=== PATIENT | female | born 1995 | race Caucasian/White ===

== ENCOUNTER 2017-04-23 17:49 | Emergency (ER) | payer OTHER ==
[~2017-04-23] VITALS: Ht 154.9 cm; Wt 78.2 kg
[~2017-04-23 17:49] MED LIST: FOLI1TAB19 PO; IRON65TA11 PO; PREN-385 PO
[2017-04-23 18:04] VITALS: BP 120/88
[2017-04-23 18:29] LABS: BASOPHILS # (AUTO) 0.4 K/uL (0.00-0.22); EOSINOPHILS # (AUTO) 0.2 K/uL (0-0.4); HEMATOCRIT 38.4 % (36-48); HEMOGLOBIN 12.9 g/dL (12.0-16.0); LYMPHOCYTES # (AUTO) 2.3 K/uL (2.5-16.5); MEAN CORPUSCULAR HEMOGLOBIN 30 pg (27-31); MEAN CORPUSCULAR HGB CONC 34 g/dL (33-37); MEAN CORPUSCULAR VOLUME 88 fL (80-94); MONOCYTES # (AUTO) 0.6 K/uL (0.8-1.0); NEUTROPHILS # (AUTO) 4.5 K/uL (1.8-7.7); PLATELET COUNT (AUTO) 287 K/uL (140-450); RED BLOOD CELL COUNT(AUTO) 4.36 MIL/uL (4.20-5.40); RED CELL DISTRIBUTION WIDTH 12.9 % (11.6-13.7)
[2017-04-23 18:31] LABS: APPEARANCE,URINE CLEAR (CLEAR); BILIRUBIN,URINE NEGATIVE (NEGATIVE); BLOOD, URINE TRACE-I (NEGATIVE); COLOR,URINE YELLOW (YELLOW); LEUKOCYTE ESTERASE ,URINE TRACE (NEGATIVE); NITRITE, URINE NEGATIVE (NEGATIVE); PROTEIN,URINE NEGATIVE (NEGATIVE); UGLUCOSE NEGATIVE (NEGATIVE); UROBILINOGEN,URINE 0.2 EU/dL (0.2 - 1)
[2017-04-23 18:41] LABS: RBC,URINE 0-5 /HPF (0-5)
[2017-04-23 18:42] LABS: BACTERIA,URINE 2+ /HPF (None Seen); MUCUS,URINE 2+ /LPF (None Seen)
[2017-04-23 18:44] LABS: CALCIUM 8.6 mg/dL (8.5-10.1); CARBON DIOXIDE 26.7 mmol/L (21-32); CREATININE 0.7 mg/dL (0.6-1.3); POTASSIUM 3.7 mmol/L (3.5-5.1)
[2017-04-23 18:48] LABS: PARTIAL THROMBOPLASTIN TIME 26.1 secs (22-35.6); PROTHROMBIN TIME 10.5 secs (10.8-13.4)
[2017-04-23 18:50] LABS: ALBUMIN 3.9 g/dL (3.4-5.0); TOTAL BILIRUBIN 1.4 mg/dL (0.0-1.0); TOTAL PROTEIN, SERUM 7.7 g/dL (6.4-8.2)
--- NOTE | 2017-04-23 20:49 | NUR ---
Patient ambulated to OF3 at this time.
[2017-04-23 21:40] VITALS: BP 118/74
== END 2017-04-23 21:40 | disposition home or self-care (01) ==
LOC: MED 17:49
DX: K22.6 Gastro-esophageal laceration-hemorrhage syndrome (principal); R03.0 Elevated blood-pressure reading, without diagnosis of hypertension
CPT/HCPCS: 36415; 71020; 80053; 81001; 81025; 83690; 85025; 85610; 85730; 87086; 99285

== ENCOUNTER 2018-01-14 07:35 | Emergency (ER) | payer MEDICAID ==
[~2018-01-14] VITALS: Ht 157.5 cm; Wt 79.4 kg
[~2018-01-14 07:35] MED LIST changes: +FERR-252 PO; -IRON65TA11 PO
[2018-01-14 07:46] VITALS: BP 112/70
[2018-01-14 10:02] LABS: BILIRUBIN,URINE NEGATIVE (NEGATIVE); BLOOD, URINE NEGATIVE (NEGATIVE); COLOR,URINE YELLOW (YELLOW); LEUKOCYTE ESTERASE ,URINE 1+ (NEGATIVE); PH,URINE 5.5 (5.0-9.0); UGLUCOSE NEGATIVE (NEGATIVE)
[2018-01-14 10:16] LABS: APPEARANCE,URINE HAZY (CLEAR); NITRITE, URINE POSITIVE (NEGATIVE)
[2018-01-14 10:17] LABS: RBC,URINE 0-5 (RARE) /HPF (0-5)
[2018-01-14 10:30] VITALS: BP 102/61
== END 2018-01-14 10:30 | disposition home or self-care (01) ==
LOC: MED 07:35
DX: O23.41 Unspecified infection of urinary tract in pregnancy, first trimester (principal); Z3A.10 10 weeks gestation of pregnancy
CPT/HCPCS: 36415; 76801; 81001; 81025; 84702; 87086; 87186; 99285; Q0092

== ENCOUNTER 2018-04-11 06:57 | Emergency (ER) | payer MEDICAID, OTHER ==
[~2018-04-11] VITALS: Ht 157.5 cm; Wt 77.2 kg
[2018-04-11 07:02] VITALS: BP 120/64
--- NOTE | 2018-04-11 07:07 | NUR ---
PT AMBULATEY TO BED 7
--- NOTE | 2018-04-11 07:08 | NUR ---
REPORT GIVEN TO JOLENE VELIZ
--- NOTE | 2018-04-11 07:10 | NUR ---
PT. CAME INTO THE ED DUE TO LOWER ABD CRAMPING SINCE LAST NIGHT. PT. STATES " SINCE 8PM LAST NIGHT I STARTED HAVING A LOT OF CRAMPING IN MY LOWER ABDOMEN SO I CAME IN BECAUSE IM WORRIED". 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 PT. IS CURRENTLY TAKING VITAMINS INDICATED. PT. IS [id number]. PT. DENIES ANY VAGINAL BLEEDING AT THIS TIME. PT STATES " I ONLY HAVE MORNING SICKNESS". 10 PAIN IN LOWER ABD THAT RADIATEST TO BACK AND DESCRIBED CRAMPING. ER MD NOTIFIED. WILL CONTINUE TO MONITOR.
[2018-04-11 08:09] LABS: APPEARANCE,URINE CLEAR (CLEAR); BILIRUBIN,URINE NEGATIVE (NEGATIVE); BLOOD, URINE NEGATIVE (NEGATIVE); COLOR,URINE YELLOW (YELLOW); LEUKOCYTE ESTERASE ,URINE 1+ (NEGATIVE); NITRITE, URINE NEGATIVE (NEGATIVE); UGLUCOSE NEGATIVE (NEGATIVE)
[2018-04-11 08:13] LABS: RBC,URINE 0-5 (RARE) /HPF (0-5)
[2018-04-11 08:14] LABS: WBC,URINE 0-5 (RARE) /HPF (0-5)
[2018-04-11 08:37] VITALS: BP 120/64
== END 2018-04-11 08:38 | disposition home or self-care (01) ==
LOC: MED 06:57
DX: O23.42 Unspecified infection of urinary tract in pregnancy, second trimester (principal); Z79.899 Other long term (current) drug therapy; Z3A.20 20 weeks gestation of pregnancy
CPT/HCPCS: 81001; 87086; 99284

== ENCOUNTER 2018-07-25 23:00 | Inpatient (IN) | payer OTHER ==
[~2018-07-25] VITALS: Ht 157.5 cm; Wt 80.3 kg
[2018-07-25 23:15] VITALS: BP 106/67
[2018-07-25] MEDS ORDERED: LACTATED RINGERS 1,000 ML IV SCH (23:45)
[2018-07-25] MEDS ORDERED: NALBUPHINE 10 MG/ML AMP IVP PRN (23:45)
[2018-07-25] MEDS ORDERED: TERBUTALINE 1 MG/ML VIAL SUBQ SCH (23:45)
[2018-07-25] MEDS ORDERED: TERBUTALINE 1 MG/ML VIAL SUBQ ONE (23:54)
== END 2018-07-26 12:45 | disposition home or self-care (01) | DRG 565 ==
LOC: MLD 23:00
PROVIDERS: ADMIT Obstetrics & Gynecology; ATTEND Obstetrics & Gynecology
DX: O47.9 False labor, unspecified (principal); Z3A.00 Weeks of gestation of pregnancy not specified
CPT/HCPCS: J3105; J7120

== ENCOUNTER 2018-08-02 18:50 | Inpatient (IN) | payer OTHER ==
[~2018-08-02] VITALS: Ht 157.5 cm; Wt 80.3 kg
[2018-08-02 19:03] VITALS: BP 113/69
[2018-08-02] MEDS ORDERED: LACTATED RINGERS 1,000 ML IV SCH (19:45)
[2018-08-02 20:15] LABS: BASOPHILS % (AUTO) 0.4 % (0.0-2.0); EOSINOPHILS # (AUTO) 0.1 K/uL (0-0.4); EOSINOPHILS % (AUTO) 1.1 % (0.0-4.0); HEMATOCRIT 31.9 % (36-48); HEMOGLOBIN 10.9 g/dL (12.0-16.0); LYMPHOCYTES # (AUTO) 2.3 K/uL (2.5-16.5); LYMPHOCYTES % (AUTO) 30.7 % (20.5-51.1); MEAN CORPUSCULAR HEMOGLOBIN 31 pg (27-31); MEAN CORPUSCULAR HGB CONC 34 g/dL (33-37); MONOCYTES # (AUTO) 0.7 K/uL (0.8-1.0); MONOCYTES % (AUTO) 9.6 % (1.7-9.3); NEUTROPHILS # (AUTO) 4.4 K/uL (1.8-7.7); NEUTROPHILS % (AUTO) 58.2 % (42.2-75.2); PLATELET COUNT (AUTO) 178 K/uL (140-450); RED BLOOD CELL COUNT(AUTO) 3.51 MIL/uL (4.20-5.40); RED CELL DISTRIBUTION WIDTH 13.1 % (11.6-13.7); WHITE BLOOD COUNT (AUTO) 7.5 K/uL (4.8-10.8)
== END 2018-08-02 22:30 | disposition home or self-care (01) | DRG 565 ==
LOC: MLD 18:50
PROVIDERS: ADMIT Obstetrics & Gynecology; ATTEND Obstetrics & Gynecology
DX: O47.9 False labor, unspecified (principal); Z3A.00 Weeks of gestation of pregnancy not specified
CPT/HCPCS: 36415; 76815; 85025; 86592; 86886; 86900; 86901; C1758; J7120; Q0092

== ENCOUNTER 2018-08-07 17:04 | Inpatient (IN) | payer OTHER ==
[~2018-08-07] VITALS: Ht 157.5 cm; Wt 80.3 kg
[~2018-08-07 17:04] MED LIST changes: -FERR-252 PO; -FOLI1TAB19 PO
[2018-08-07] MEDS ORDERED: NALBUPHINE 10 MG/ML AMP IVP PRN (17:40)
[2018-08-07] MEDS ORDERED: CARBOPROST 250 MCG/ML AMP IM PRN (17:40)
[2018-08-07] MEDS ORDERED: OXYTOCIN 10 UNITS/ML VIAL IM SCH (17:40)
[2018-08-07] MEDS ORDERED: METHYLERGONOVINE 0.2 MG/ML AMP IM PRN (17:40)
[2018-08-07 18:48] LABS: BASOPHILS % (AUTO) 0.4 % (0.0-2.0); EOSINOPHILS % (AUTO) 0.6 % (0.0-4.0); HEMATOCRIT 35.6 % (36-48); HEMOGLOBIN 11.9 g/dL (12.0-16.0); LYMPHOCYTES # (AUTO) 1.9 K/uL (2.5-16.5); LYMPHOCYTES % (AUTO) 30.2 % (20.5-51.1); MEAN CORPUSCULAR HEMOGLOBIN 31 pg (27-31); MEAN CORPUSCULAR HGB CONC 34 g/dL (33-37); MEAN CORPUSCULAR VOLUME 91.5 fL (80-94); MONOCYTES # (AUTO) 0.5 K/uL (0.8-1.0); MONOCYTES % (AUTO) 7.8 % (1.7-9.3); NEUTROPHILS # (AUTO) 3.9 K/uL (1.8-7.7); PLATELET COUNT (AUTO) 180 K/uL (140-450); RED BLOOD CELL COUNT(AUTO) 3.89 MIL/uL (4.20-5.40); RED CELL DISTRIBUTION WIDTH 13.1 % (11.6-13.7); WHITE BLOOD COUNT (AUTO) 6.4 K/uL (4.8-10.8)
[2018-08-07 18:59] LABS: APPEARANCE,URINE SLIGHTLY HAZY (CLEAR); COLOR,URINE YELLOW (YELLOW)
[2018-08-07 19:00] LABS: BILIRUBIN,URINE NEGATIVE (NEGATIVE); BLOOD, URINE NEGATIVE (NEGATIVE); NITRITE, URINE NEGATIVE (NEGATIVE); UGLUCOSE NEGATIVE (NEGATIVE)
[2018-08-07 19:01] LABS: LEUKOCYTE ESTERASE ,URINE 2+ (NEGATIVE)
[2018-08-07 19:02] LABS: RBC,URINE NONE SEEN /HPF (0-5); WBC,URINE 6-15 (FEW) /HPF (0-5)
[2018-08-07] MEDS: LACTATED RINGERS 1,000 ML IV SCH (19:19)
[2018-08-08] MEDS: LACTATED RINGERS 1,000 ML IV SCH ×2 (03:44→11:11)
[2018-08-08] MEDS ORDERED: OXYTOCIN 20 UNITS/LR PREMIX 1,000 ML IV ONE (06:14)
--- NOTE | 2018-08-08 09:34 | NUR ---
PATIENT HAS BEEN SCREENED AND CATEGORIZED LOW NUTRITION RISK. PATIENT WILL BE SEEN WITHIN 7 DAYS OF ADMISSION. 08/14/[address]
[2018-08-08] MEDS ORDERED: OXYTOCIN 10 UNITS/ML VIAL ONE (11:38)
[2018-08-08] MEDS ORDERED: LIDOCAINE 1% 50 ML ONE (18:34)
[2018-08-08] MEDS ORDERED: MEASLES, MUMPS, AND RUBELLA 1 VIAL SQVAC PRN (19:50)
[2018-08-08] MEDS ORDERED: ACETAMINOPHEN 325 MG TAB PO PRN (19:50)
[2018-08-08] MEDS ORDERED: BISACODYL 5 MG TABEC PO PRN (19:50)
[2018-08-08] MEDS ORDERED: OXYTOCIN 20 UNITS in LACTATED RINGERS 1,000 ML IV SCH (19:50)
[2018-08-09] MEDS: IBUPROFEN 600 MG TAB PO PRN (01:54)
[2018-08-09] MEDS ORDERED: INFLUENZA VIRUS VACCINE QUAD 0.5 ML SYR IMVAC PRN (04:43)
[2018-08-09 09:20] LABS: BASOPHILS # (AUTO) 0.1 K/uL (0.00-0.22); BASOPHILS % (AUTO) 0.7 % (0.0-2.0); EOSINOPHILS # (AUTO) 0.1 K/uL (0-0.4); EOSINOPHILS % (AUTO) 0.7 % (0.0-4.0); HEMOGLOBIN 12.1 g/dL (12.0-16.0); LYMPHOCYTES # (AUTO) 2.8 K/uL (2.5-16.5); LYMPHOCYTES % (AUTO) 26.6 % (20.5-51.1); MEAN CORPUSCULAR HEMOGLOBIN 31 pg (27-31); MEAN CORPUSCULAR HGB CONC 34 g/dL (33-37); MEAN CORPUSCULAR VOLUME 91.7 fL (80-94); MONOCYTES # (AUTO) 0.5 K/uL (0.8-1.0); MONOCYTES % (AUTO) 5.2 % (1.7-9.3); NEUTROPHILS % (AUTO) 66.8 % (42.2-75.2); PLATELET COUNT (AUTO) 176 K/uL (140-450); RED BLOOD CELL COUNT(AUTO) 3.93 MIL/uL (4.20-5.40); RED CELL DISTRIBUTION WIDTH 13.3 % (11.6-13.7); WHITE BLOOD COUNT (AUTO) 10.5 K/uL (4.8-10.8)
[2018-08-10] MEDS: IBUPROFEN 600 MG TAB PO PRN (08:08)
== END 2018-08-10 15:00 | disposition home or self-care (01) | DRG 560 ==
LOC: MLD 17:04 → MFCC 08-08 21:20
PROVIDERS: ADMIT Obstetrics & Gynecology; ATTEND Obstetrics & Gynecology
PROC: 10E0XZZ Delivery of Products of Conception, External Approach (ICD-10-PCS; principal; 2018-08-08)
PROC: 10907ZC Drainage of Amniotic Fluid, Therapeutic from Products of Conception, Via Natural or Artificial Opening (ICD-10-PCS; 2018-08-08)
PROC: 3E033VJ Introduction of Other Hormone into Peripheral Vein, Percutaneous Approach (ICD-10-PCS; 2018-08-08)
PROC: 3E033VJ Introduction of Other Hormone into Peripheral Vein, Percutaneous Approach (ICD-10-PCS; 2018-08-08)
PROC: 3E02340 Introduction of Influenza Vaccine into Muscle, Percutaneous Approach (ICD-10-PCS; 2018-08-08)
PROC: 3E0234Z Introduction of Serum, Toxoid and Vaccine into Muscle, Percutaneous Approach (ICD-10-PCS; 2018-08-08)
DX: O48.0 Post-term pregnancy (principal); Z23 Encounter for immunization; Z37.0 Single live birth; Z3A.40 40 weeks gestation of pregnancy
CPT/HCPCS: 36415; 51702; 59409; 76815; 81001; 85025; 86592; 86886; 86900; 86901; 87086; 90658; 90715; J2001; J2590; J7120; Q0092

== ENCOUNTER 2018-09-08 02:20 | Emergency (ER) | payer OTHER ==
[~2018-09-08] VITALS: Ht 157.5 cm; Wt 74.8 kg
[2018-09-08 02:36] VITALS: BP 136/90
--- NOTE | 2018-09-08 02:36 | NUR ---
TO BED # 12 AMB, REPORT GIVEN TO BRIAN VELIZ
--- NOTE | 2018-09-08 02:40 | NUR ---
PATIENT PRESENTS TO ED WITH C/O TOOTHACHE PT SKIN IS PINK/WARM/DRY; AAOX4 WITH EVEN AND STEADY GAIT; LUNGS CLEAR BL; HR EVEN AND REGULAR; PATIENT STATES PAIN OF 10/10 AT THIS TIME; VSS; PATIENT POSITIONED FOR COMFORT; HOB ELEVATED; BEDRAILS UP X2; BED DOWN. ER MD MADE AWARE OF PT STATUS.
--- NOTE | 2018-09-08 02:52 | NUR ---
Dr. Ash evaluating patient at bedside.
[2018-09-08] MEDS ORDERED: HYDROcodone/APAP 5/325 MG 1 TAB TAB PO ONE (02:55)
[2018-09-08 03:15] VITALS: BP 136/90
== END 2018-09-08 03:15 | disposition home or self-care (01) ==
LOC: MED 02:20
DX: K02.9 Dental caries, unspecified (principal); K03.81 Cracked tooth; Z79.899 Other long term (current) drug therapy
CPT/HCPCS: 99282

== ENCOUNTER 2019-06-05 17:58 | Emergency (ER) | payer OTHER ==
[~2019-06-05] VITALS: Ht 157.5 cm; Wt 87.1 kg
[2019-06-05 18:08] VITALS: BP 116/57
--- NOTE | 2019-06-05 18:29 | NUR ---
24F C/O 05/08 CONSTANT, POKING HEAD PAIN LOCALIZED TO WHERE SHE HAD SKULL FX IN 2017 X 3 DAYS, ASSOCIATED WITH DIZZINESS AND DOUBLE VISION THAT OCCUR WHEN SHE CHANGES POSITIONS QUICKLY. STATES IT IS NOT THE USUAL HEADACHE PAIN WHICH IS FRONTAL PAIN. STATES NAUSEA SOMETIMES WITH HEAD PAIN. ALSO STATES RT EAR PEEPING SOUND AND PAIN OCCURING WITH HEAD PAIN. PERRLA. 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 SKULL FX IN 2017 WITH COMA FOR 2-3 DAYS, STATES NO SURGERY WAS DONE AT THAT TIME. HX SKULL FX RX ADVIL PRN
--- NOTE | 2019-06-05 19:17 | NUR ---
Transfer of care at this time to KEREN Simms. Pt in stable condition.
--- NOTE | 2019-06-05 19:22 | NUR ---
PT SITTING ON CHAIR. C/O OF HEADACHE 04/07. NO NAUSEA/VOMITTING. PT VSS. ERMD AWARE. WILL CONTINUE TO MONITOR.
--- NOTE | 2019-06-05 19:39 | NUR ---
Dr. Mata examining patient.
[2019-06-05] MEDS ORDERED: PROMETHAZINE 25 MG/ML VIAL IM ONE (20:00)
[2019-06-05] MEDS ORDERED: diphenhydrAMINE 50 MG/ML VIAL IM ONE (20:00)
[2019-06-05] MEDS ORDERED: KETOROLAC 30 MG/ML VIAL IM ONE (20:00)
[2019-06-05 20:28] VITALS: BP 115/75
--- NOTE | 2019-06-05 20:28 | NUR ---
PT DISCHARGED WITH PAPERWORK. NO RX PROVIDED. EDUCATED PT REGARDING D/C DIAGNOSIS. PT VERBALIZED UNDERSTANDING OF TEACHING. TOLD PT TO FOLLOW UP WITH PCP AND WHEN TO RETURN TO ED WHEN PAIN PERSISTS OR WORSENS. PT VSS. ALL QUESTIONS ANSWERED.
== END 2019-06-05 20:28 | disposition home or self-care (01) ==
LOC: MED 17:58
DX: G44.209 Tension-type headache, unspecified, not intractable (principal); Z79.899 Other long term (current) drug therapy
CPT/HCPCS: 81025; 96372; 99283; J1200; J1885; J2550

== ENCOUNTER 2019-07-22 13:19 | Emergency (ER) | payer OTHER ==
[~2019-07-22] VITALS: Ht 157.5 cm; Wt 88.0 kg
[2019-07-22 13:25] VITALS: BP_SYST 121
--- NOTE | 2019-07-22 13:33 | NUR ---
PT TAKEN TO BED 9.
--- NOTE | 2019-07-22 13:46 | NUR ---
PT PRESENTS TO ED WITH C/O RT FLANK PAIN WITH URINE URGENCY SINCE YESTERDAY. STATES HAVING NAUSEA, CHILSS, DENIES FEVER. PT AAO X4, GCS 15, AMBULATORY WITH STEADY GAIT. RESPIATIONS EVEN AND ULABORED, BL LUNG CLEAR. SKIN WARM/PINK/DRY, +PMSC. ABDOMEN SOFT, NON DISTENDED, ACTIVE BOWEL SOUND X4. VS WNL. STATED LT FLANK STABBING PAIN 8/. AT BEDSIDE EVALUATING PT. WILL CONTINUE TO MONITOR
[2019-07-22] MEDS ORDERED: ONDANSETRON 4 MG ODT PO ONE (13:50)
[2019-07-22] MEDS ORDERED: KETOROLAC 60 MG/2 ML VIAL IM ONE (13:50)
--- NOTE | 2019-07-22 14:20 | NUR ---
Patient discharged with v/s stable. Written and verbal after care instructions given and explained. Patient alert, oriented and verbalized understanding of instructions. Ambulatory with steady gait. All questions addressed prior to discharge. ID band removed. Patient advised to follow up with PMD. Rx of KEFLEX 500 MG, ZOFRAN 4 MG ODT, NORCO 5/325 MG, given. Patient educated on indication of medication including possible reaction and side effects. Opportunity to ask questions provided and answered.
[2019-07-22 14:21] VITALS: BP 125/69
== END 2019-07-22 14:20 | disposition home or self-care (01) ==
LOC: MED 13:19
DX: N10 Acute pyelonephritis (principal); Z79.899 Other long term (current) drug therapy
CPT/HCPCS: 81002; 81025; 96372; 99283; J1885; Q0162

== ENCOUNTER 2022-07-17 07:29 | Emergency (ER) | payer OTHER ==
[~2022-07-17] VITALS: Ht 154.9 cm; Wt 74.8 kg
[2022-07-17 07:32] VITALS: BP 127/87
--- NOTE | 2022-07-17 07:50 | NUR ---
27/F WALKED IN C.O HEADACHE ONSET 1 DAY ACCOMPANIED BY NAUSEA. DENIES FALL OR TRAUMA. AAO4, AMBULATORY, URINE COLLECTED. PMH: DENIES
[2022-07-17] MEDS ORDERED: ACETAMINOPHEN 325 MG TAB PO ONE (07:55)
[2022-07-17] MEDS ORDERED: PROCHLORPERAZINE 10 MG/2 ML VIAL IM ONE (07:55)
--- NOTE | 2022-07-17 08:14 | NUR ---
PT WENT FOR CT
[2022-07-17 08:18] VITALS: BP 124/77
[2022-07-17] MEDS ORDERED: PROC-62 PO (09:00)
--- NOTE | 2022-07-17 09:05 | NUR ---
Patient discharged with v/s stable. Written and verbal after care instructions given and explained. Patient alert, oriented and verbalized understanding of instructions. Ambulatory with steady gait. All questions addressed prior to discharge. ID band removed. Patient advised to follow up with PMD. Rx of COMPAZINE given. Patient educated on indication of medication including possible reaction and side effects. Opportunity to ask questions provided and answered. STATES NO LONGER NAUSEOUS
== END 2022-07-17 09:05 | disposition home or self-care (01) ==
LOC: MED 07:29
DX: R51.9 Headache, unspecified (principal); H53.149 Visual discomfort, unspecified; R11.0 Nausea; Z79.899 Other long term (current) drug therapy; Z98.890 Other specified postprocedural states
CPT/HCPCS: 70450; 81002; 81025; 96372; 99284; J0780

== ENCOUNTER 2022-08-26 06:39 | Emergency (ER) | payer OTHER ==
[~2022-08-26] VITALS: Ht 157.5 cm; Wt 82.6 kg
[~2022-08-26 06:39] MED LIST changes: +PROC-87 PO
[2022-08-26 06:44] VITALS: BP 115/69
--- NOTE | 2022-08-26 06:49 | NUR ---
Patient taken to bed 11.
--- NOTE | 2022-08-26 06:49 | NUR ---
PT TO 11
--- NOTE | 2022-08-26 07:25 | NUR ---
27F presents to ED with c/o bilateral breast pain and right lower back pain x2 weeks. Pt reports a constant, sharp like, 9/10 pain to right lower back. Pt denies trauma or injury, UTI symptoms, and ABD pain. Pt reports intermittent, sharp like, 6/10 pain to left and right breasts, took ibuprofen for pain with mild relief. Pt denies SOB, fevers, chills, or meds today. Pt changed into gown, bed at lowest position, side rails x1.
[2022-08-26] MEDS ORDERED: KETOROLAC 30 MG/ML VIAL IM ONE (07:30)
[2022-08-26 07:35] LABS: APPEARANCE,URINE CLOUDY (CLEAR); BILIRUBIN,URINE NEGATIVE (NEGATIVE); BLOOD, URINE TRACE-I (NEGATIVE); COLOR,URINE YELLOW (YELLOW); LEUKOCYTE ESTERASE ,URINE TRACE (NEGATIVE); NITRITE, URINE POSITIVE (NEGATIVE); UGLUCOSE NEGATIVE (NEGATIVE)
--- NOTE | 2022-08-26 07:41 | NUR ---
Female Slot Floor Person accompanied female patient for Breast Exam.
[2022-08-26] MEDS ORDERED: CYCL-711 PO (07:44)
[2022-08-26] MEDS ORDERED: NAPR-54 PO (07:44)
--- NOTE | 2022-08-26 08:05 | NUR ---
Pt taken to Xray via w/c.
[2022-08-26] MEDS ORDERED: NITR100C7 PO (08:22)
--- NOTE | 2022-08-26 08:29 | NUR ---
Patient discharged with v/s stable. Written and verbal after care instructions chest wall pain, UTI, sciatica and mammogram given and explained. Patient alert, oriented and verbalized understanding of instructions. Ambulatory with steady gait. All questions addressed prior to discharge. ID band removed. Patient advised to follow up with PMD. Rx of Flexeril, naprosyn and macrobid given. Patient educated on indication of medication including possible reaction and side effects. Opportunity to ask questions provided and answered.
[2022-08-26 08:31] LABS: OTHER CASTS, URINE None Seen /LPF (None Seen); WBC,URINE 0-5 /HPF (0-5)
== END 2022-08-26 08:29 | disposition home or self-care (01) ==
LOC: MED 06:39
DX: R07.89 Other chest pain (principal); N39.0 Urinary tract infection, site not specified
CPT/HCPCS: 71045; 73502; 81001; 81025; 87086; 96372; 99284; J1885

== ENCOUNTER 2022-10-22 07:59 | Emergency (ER) | payer OTHER ==
[~2022-10-22] VITALS: Ht 160 cm; Wt 85.7 kg
[~2022-10-22 07:59] MED LIST changes: +CYCL-711 PO; +NAPR-54 PO; +NITR100C7 PO
[2022-10-22 08:10] VITALS: BP 125/73
--- NOTE | 2022-10-22 08:15 | NUR ---
PT AMBULATED TO BED 6 WITH STEADY GAIT
--- NOTE | 2022-10-22 08:20 | NUR ---
27YO FEMALE PT C/O TIGHT R LEG PAIN [id number]. RADIATION FROM RL BACK TO BACK OF R LEG . PAIN AT MOST ON MOVEMENT OR BENDING AT WAIST. 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 DENIES RECENT INJURY OR RELIEF AFTER IBUPROFEN. PT ABLE TO LIFT LEG W/ SOME DISCOMFORT. NOTES BEING SEEN IN 07/2022 FOR S/S SYMPTOMS AND TOLD IT WAS PULLED MUSCLE. AAOX4, AMB/ STEADY GAIT. HOB POSITIONED PER COMFORT HX: DENIES NKA
[2022-10-22] MEDS ORDERED: KETOROLAC 15 MG/ML VIAL IM ONE (08:40)
[2022-10-22 09:23] LABS: BILIRUBIN,URINE NEGATIVE (NEGATIVE); BLOOD, URINE TRACE-I (NEGATIVE); COLOR,URINE YELLOW (YELLOW); LEUKOCYTE ESTERASE ,URINE NEGATIVE (NEGATIVE); NITRITE, URINE NEGATIVE (NEGATIVE); UGLUCOSE NEGATIVE (NEGATIVE)
[2022-10-22 09:40] LABS: RBC,URINE 0-5 /HPF (0-5); WBC,URINE 0-5 /HPF (0-5)
[2022-10-22 09:41] LABS: YEAST,URINE Few /HPF (None Seen)
[2022-10-22 09:45] LABS: APPEARANCE,URINE CLEAR (CLEAR)
[2022-10-22] MEDS ORDERED: CYCL-711 PO (09:56)
[2022-10-22] MEDS ORDERED: NAPR-54 PO (09:56)
[2022-10-22 10:07] VITALS: BP 130/82
--- NOTE | 2022-10-22 10:07 | NUR ---
The patient's care was reviewed and supervised by Devendra Bain RN.
--- NOTE | 2022-10-22 10:07 | NUR ---
Patient discharged with v/s stable. Written and verbal after care instructions FOR ACUTE BACK PAIN AND SCIATICA given and explained. Patient alert, oriented and verbalized understanding of instructions. Ambulatory with steady gait. All questions addressed prior to discharge. ID band removed. Patient advised to follow up with PMD. Rx of FLEXERIL AND NAPROXEN given. Opportunity to ask questions provided and answered.
== END 2022-10-22 10:07 | disposition home or self-care (01) ==
LOC: MED 07:59
DX: M54.50 Low back pain, unspecified (principal); F17.200 Nicotine dependence, unspecified, uncomplicated; Z72.89 Other problems related to lifestyle
CPT/HCPCS: 81001; 81025; 87086; 96372; 99283; J1885

== ENCOUNTER 2023-11-29 21:40 | Emergency (ER) | payer OTHER ==
[~2023-11-29] VITALS: Ht 157.5 cm; Wt 83.0 kg
[2023-11-29 21:47] VITALS: BP 134/82; PULSE 75; RESP 18; TEMP 97.6; O2SAT 99
[2023-11-29 22:34] LABS: BILIRUBIN,URINE NEGATIVE (NEGATIVE); BLOOD, URINE NEGATIVE (NEGATIVE); COLOR,URINE YELLOW (YELLOW); LEUKOCYTE ESTERASE ,URINE 1+ (NEGATIVE); NITRITE, URINE NEGATIVE (NEGATIVE); PROTEIN,URINE NEGATIVE (NEGATIVE); UGLUCOSE NEGATIVE (NEGATIVE); UROBILINOGEN,URINE 0.2 EU/dL (0.2 - 1)
[2023-11-29 22:50] LABS: APPEARANCE,URINE SLIGHTLY HAZY (CLEAR)
[2023-11-29 22:53] LABS: BACTERIA,URINE 1+ /HPF (None Seen); RBC,URINE 0-5 /HPF (0-5)
[2023-11-29] MEDS ORDERED: CEPH-588 PO (23:10)
== END 2023-11-29 23:40 | disposition home or self-care (01) ==
LOC: MED 21:40
DX: N39.0 Urinary tract infection, site not specified (principal); M79.632 Pain in left forearm; Z79.899 Other long term (current) drug therapy
CPT/HCPCS: 73090; 81001; 81025; 87086; 99284; Q0092

== ENCOUNTER 2024-05-02 08:48 | Emergency (ER) | payer OTHER ==
[~2024-05-02] VITALS: Ht 157.5 cm; Wt 77.3 kg
[~2024-05-02 08:48] MED LIST changes: +CEPH-588 PO; +NAPR-337 PO; -NAPR-54 PO
[2024-05-02 09:11] VITALS: BP 107/68; PULSE 65; RESP 14; TEMP 97; O2SAT 99
[2024-05-02 09:29] VITALS: O2SAT 99
[2024-05-02] MEDS: ACETAMINOPHEN 325 MG TAB PO ONE (09:50)
[2024-05-02 09:58] LABS: APPEARANCE,URINE SL CLOUDY (CLEAR); BILIRUBIN,URINE NEGATIVE (NEGATIVE); BLOOD, URINE NEGATIVE (NEGATIVE); COLOR,URINE AMBER (YELLOW); LEUKOCYTE ESTERASE ,URINE 3+ (NEGATIVE); NITRITE, URINE NEGATIVE (NEGATIVE); PROTEIN,URINE NEGATIVE (NEGATIVE); UGLUCOSE NEGATIVE (NEGATIVE)
[2024-05-02 10:07] LABS: BACTERIA,URINE >30 (MANY) /HPF (None Seen); MUCUS,URINE 1+ /LPF (None Seen); RBC,URINE 0-5 /HPF (0-5); SQUAMOUS EPITHELIAL CELL,UR 4-10 (MOD) /LPF (0-3 (FEW))
[2024-05-02 11:10] LABS: BASOPHILS % (AUTO) 0.4 % (0.0-2.0); EOSINOPHILS % (AUTO) 0.6 % (0.0-4.0); HEMATOCRIT 29.9 % (36-48); LYMPHOCYTES # (AUTO) 2.1 K/uL (2.5-16.5); LYMPHOCYTES % (AUTO) 28.8 % (20.5-51.1); MEAN CORPUSCULAR HEMOGLOBIN 29 pg (27-31); MEAN CORPUSCULAR HGB CONC 33 g/dL (33-37); MEAN CORPUSCULAR VOLUME 87.7 fL (80-94); MONOCYTES # (AUTO) 0.5 K/uL (0.8-1.0); MONOCYTES % (AUTO) 6.2 % (1.7-9.3); NEUTROPHILS # (AUTO) 4.7 K/uL (1.8-7.7); PLATELET COUNT (AUTO) 267 K/uL (140-450); RED BLOOD CELL COUNT(AUTO) 3.41 MIL/uL (4.20-5.40); RED CELL DISTRIBUTION WIDTH 14.4 % (11.6-13.7); WHITE BLOOD COUNT (AUTO) 7.3 K/uL (4.8-10.8)
[2024-05-02 11:25] LABS: ANION GAP 13.5 (8-16); CALCIUM 8.3 mg/dL (8.5-10.1); CARBON DIOXIDE 23.5 mmol/L (21-32); CREATININE 0.5 mg/dL (0.6-1.3)
[2024-05-02 11:33] LABS: ALBUMIN 2.8 g/dL (3.4-5.0); BILIRUBIN,DIRECT 0.1 mg/dL (0.0-0.3); TOTAL BILIRUBIN 0.8 mg/dL (0.0-1.0); TOTAL PROTEIN, SERUM 6.8 g/dL (6.4-8.2)
[2024-05-02] MEDS ORDERED: CEPH-588 PO (11:39)
[2024-05-02] MEDS ORDERED: POTASSIUM CHLORIDE 10 MEQ TABER PO ONE (11:41)
[2024-05-02] MEDS: POTASSIUM CHLORIDE 10 MEQ TABER PO ONE (11:42)
[2024-05-02 11:51] VITALS: BP 107/70; PULSE 59; RESP 16; TEMP 98
== END 2024-05-02 11:53 | disposition home or self-care (01) ==
LOC: MED 08:48
DX: O23.42 Unspecified infection of urinary tract in pregnancy, second trimester (principal); O99.012 Anemia complicating pregnancy, second trimester; O99.282 Endocrine, nutritional and metabolic diseases complicating pregnancy, second trimester; E87.6 Hypokalemia; Z3A.20 20 weeks gestation of pregnancy; Z79.899 Other long term (current) drug therapy
CPT/HCPCS: 36415; 76770; 80048; 80076; 81001; 81025; 83690; 85025; 87086; 87186; 99284; Q0092